=== PATIENT | male | born 1960 | race Caucasian/White ===

== ENCOUNTER 2018-05-15 09:25 | Observation (INO) ==
[2018-05-15] MEDS ORDERED: ASPIRIN EC 325 MG TABLET PO STA (10:11)
[2018-05-15 10:41] LABS: Partial Thromboplastin Time 26.2 SECS (0-40)
[2018-05-15 10:52] LABS: Basophils # 0.1 10*3/uL (0.0-0.2); Basophils % 0.8 % (0.0-0.8); Eosinophils # 0.1 10*3/uL (0.0-0.87); Eosinophils % 1.6 % (0.00-10.9); Hematocrit 48.8 VOL% (42.0-52.0); Immature Granulocytes % 1.4 %; Immature Granulocytes Absolute 0.11 #; Lymphocytes # 1.6 10*3/uL (1.4-4.0); Lymphocytes % 20.2 % (21.2-54.2); Mean Corpuscular HGB Conc 29.1 GM/DL (32-36); Mean Corpuscular Hemoglobin 22 PG (27-34); Mean Corpuscular Volume 74.2 FL (87-102); Monocytes # 1.2 10*3/uL (0.11-0.8); Monocytes % 14.5 % (1.7-12.7); NRBC # 0.02 10*3/uL; Neutrophils # 4.9 10*3/uL (1.4-7.4); Neutrophils % 61.5 % (38.7-73.9); Platelet Count 181 T/CUMM (130-400); Red Blood Count 6.58 MC/CUMM (3.8-5.5); Red Cell Distribution Width 23.3 % (9.3-17.3)
[2018-05-15 10:54] LABS: Hemoglobin 14.2 GM/DL (14.0-18.0)
[2018-05-15 10:57] LABS: Albumin 3.5 G/DL (3.4-5.0); Bilirubin,Total 0.5 MG/DL (0.2-1.0); Calcium 8.6 MG/DL (8.5-10.1); Osmolality,Calculated 279.1 MOS/KG (273-304); Potassium 4.1 MMOL/L (3.5-5.1)
[2018-05-15 10:58] LABS: Hypochromasia 1+; Platelet Estimate Adequate
[2018-05-15] MEDS ORDERED: FUROSEMIDE 40 MG/4 ML VIAL IV STA (11:26)
[2018-05-15] MEDS ORDERED: DEXTROSE 50% 25 GM/50 ML SYRINGE IV PRN (11:53)
[2018-05-15] MEDS ORDERED: ZALEPLON 5 MG CAPSULE PO PRN (11:53)
[2018-05-15] MEDS ORDERED: MAGNESIUM HYDROXIDE SUSP 30 ML UDCUP PO PRN (11:53)
[2018-05-15] MEDS ORDERED: ACETAMINOPHEN 325 MG TABLET PO PRN (11:53)
[2018-05-15] MEDS ORDERED: MORPHINE 4 MG/1 ML VIAL IV PRN (11:53)
[2018-05-15] MEDS ORDERED: ONDANSETRON 4 MG/2 ML VIAL IV PRN (11:53)
[2018-05-15] MEDS ORDERED: oxyCODONE/ACETAMINOPHEN 5-325 MG TABLET PO PRN (11:53)
[2018-05-15] MEDS ORDERED: NITROGLYCERIN SL 0.4 MG TABLET SL PRN (11:53)
[2018-05-15] MEDS ORDERED: GLUCAGON 1 MG VIAL IM PRN (11:53)
[2018-05-15] MEDS ORDERED: ALUM/MAG/SIMETH/LIDO VISC 1:1 30 ML BOTTLE PO PRN (11:53)
[2018-05-15] MEDS ORDERED: POTASSIUM CHLORIDE 20 MEQ TABLET PO PRN ×2 (11:53)
[2018-05-15] MEDS ORDERED: ALBUTEROL 2.5 MG/3 ML NEB RESP TX PRN (12:04)
[2018-05-15 12:48] LABS: Risk Ratio 5.82
[2018-05-15] MEDS: INSULIN REGULAR 100 UNIT/ML SUBCUT SCH ×2 (16:08→21:19)
[2018-05-15] MEDS: ENOXAPARIN 40 MG/0.4 ML SYRINGE SUBCUT SCH (16:43)
[2018-05-15] MEDS ORDERED: ATORVASTATIN 20 MG TABLET PO SCH (21:00)
[2018-05-15] MEDS: FLUTICASONE/SALMETEROL 500-50 DISKUS 14 DOSE INH SCH (21:18)
[2018-05-15] MEDS: FLUTICASONE 50 MCG NASAL SPRAY 16 GM BOTTLE BOTH NARES SCH (21:18)
[2018-05-15] MEDS: MONTELUKAST 10 MG TABLET PO SCH (21:20)
[2018-05-15] MEDS: levETIRAcetam 250 MG TABLET PO SCH ×2 (21:20→21:26)
[2018-05-15] MEDS: FAMOTIDINE 20 MG TABLET PO SCH ×2 (21:21→21:31)
[2018-05-16 05:05] LABS: Albumin 3.3 G/DL (3.4-5.0); Bilirubin,Total 0.8 MG/DL (0.2-1.0); Calcium 8.5 MG/DL (8.5-10.1); Potassium 4.3 MMOL/L (3.5-5.1); Total Protein 6.8 G/DL (6.4-8.3)
[2018-05-16 05:08] LABS: Basophils # 0.1 10*3/uL (0.0-0.2); Basophils % 0.8 % (0.0-0.8); Eosinophils # 0.1 10*3/uL (0.0-0.87); Eosinophils % 1.2 % (0.00-10.9); Hematocrit 48.2 VOL% (42.0-52.0); Hemoglobin 14.2 GM/DL (14.0-18.0); Immature Granulocytes % 1.1 %; Immature Granulocytes Absolute 0.11 #; Lymphocytes # 1.9 10*3/uL (1.4-4.0); Lymphocytes % 19.4 % (21.2-54.2); Mean Corpuscular HGB Conc 29.5 GM/DL (32-36); Mean Corpuscular Hemoglobin 22 PG (27-34); Mean Corpuscular Volume 74.2 FL (87-102); Monocytes # 1.1 10*3/uL (0.11-0.8); Neutrophils # 6.4 10*3/uL (1.4-7.4); Neutrophils % 66.5 % (38.7-73.9); Platelet Count 190 T/CUMM (130-400); Red Cell Distribution Width 23.9 % (9.3-17.3); White Blood Count 9.7 T/CUMM (4-12)
[2018-05-16 05:11] LABS: Hypochromasia Slight; Ovalocytes 2+; Platelet Estimate Normal
[2018-05-16] MEDS: THYROID 60 MG TABLET PO SCH (08:48)
[2018-05-16] MEDS: sitaGLIPtin 100 MG TABLET PO SCH (08:48)
[2018-05-16] MEDS: LOSARTAN 50 MG TABLET PO SCH (08:49)
[2018-05-16] MEDS: ASPIRIN EC 81 MG TABLET PO SCH (08:49)
[2018-05-16] MEDS: FLUTICASONE/SALMETEROL 500-50 DISKUS 14 DOSE INH SCH ×3 (08:49→21:39)
[2018-05-16] MEDS: FAMOTIDINE 20 MG TABLET PO SCH ×2 (08:49→21:39)
[2018-05-16] MEDS: CLOPIDOGREL 75 MG TABLET PO SCH (08:49)
[2018-05-16] MEDS: FLUTICASONE 50 MCG NASAL SPRAY 16 GM BOTTLE BOTH NARES SCH ×2 (08:49→21:39)
[2018-05-16] MEDS: AMIODARONE 200 MG TABLET PO SCH (08:49)
[2018-05-16] MEDS: levETIRAcetam 250 MG TABLET PO SCH ×2 (08:49→21:39)
[2018-05-16] MEDS: INSULIN REGULAR 100 UNIT/ML SUBCUT SCH ×4 (09:22→21:39)
[2018-05-16] MEDS: NON-FORMULARY MEDICATION (Empagliflozin [Jardiance] 10 MG) PO SCH (09:23)
[2018-05-16] MEDS ORDERED: POTASSIUM CHLORIDE RIDER 10 MEQ in PREMIX 1 EACH IV PRN (09:58)
[2018-05-16] MEDS ORDERED: diphenhydrAMINE CAP 25 MG CAPSULE PO ONE (09:58)
[2018-05-16] MEDS ORDERED: DIAZEPAM 5 MG TABLET PO ONE (09:58)
[2018-05-16] MEDS ORDERED: MAGNESIUM SULF RIDER 2 GM in PREMIX 1 EACH IV PRN (09:58)
[2018-05-16 10:51] LABS: PT Patient Result 10.4 SECS
[2018-05-16] MEDS: ENOXAPARIN 40 MG/0.4 ML SYRINGE SUBCUT SCH (13:05)
[2018-05-16] MEDS ORDERED: LIDOCAINE 1% 20 ML VIAL ONE (13:32)
[2018-05-16] MEDS ORDERED: ENOXAPARIN 30 MG/0.3 ML SYRINGE ONE (14:23)
[2018-05-16] MEDS ORDERED: ENOXAPARIN 60 MG/0.6 ML SYRINGE ONE (14:23)
[2018-05-16] MEDS ORDERED: TIROFIBAN 5,000 MCG/100 ML PREMIX IV ONE (14:34)
[2018-05-16] MEDS: TIROFIBAN 5,000 MCG/100 ML PREMIX IV SCH ×2 (14:42→18:53)
[2018-05-16] MEDS ORDERED: TICAGRELOR 90 MG TABLET ONE (14:54)
[2018-05-16] MEDS: ROSUVASTATIN 20 MG TABLET PO SCH (17:35)
[2018-05-16] MEDS: SODIUM CHLORIDE 0.45% 1,000 ML IV SCH (18:53)
[2018-05-16] MEDS: MONTELUKAST 10 MG TABLET PO SCH (21:38)
[2018-05-17] MEDS: SODIUM CHLORIDE 0.45% 1,000 ML IV SCH (00:10)
[2018-05-17] MEDS: TIROFIBAN 5,000 MCG/100 ML PREMIX IV SCH (02:25)
[2018-05-17 07:58] LABS: Calcium 8.6 MG/DL (8.5-10.1); Osmolality,Calculated 280.8 MOS/KG (273-304); Potassium 4.3 MMOL/L (3.5-5.1)
[2018-05-17 08:05] LABS: Basophils # 0.1 10*3/uL (0.0-0.2); Basophils % 0.8 % (0.0-0.8); Eosinophils # 0.1 10*3/uL (0.0-0.87); Eosinophils % 1.1 % (0.00-10.9); Hematocrit 51.7 VOL% (42.0-52.0); Immature Granulocytes % 1.8 %; Immature Granulocytes Absolute 0.18 #; Lymphocytes # 1.6 10*3/uL (1.4-4.0); Lymphocytes % 15.3 % (21.2-54.2); Mean Corpuscular HGB Conc 29.2 GM/DL (32-36); Mean Corpuscular Hemoglobin 22 PG (27-34); Mean Corpuscular Volume 74.6 FL (87-102); Monocytes # 1.2 10*3/uL (0.11-0.8); Monocytes % 11.7 % (1.7-12.7); NRBC # 0.02 10*3/uL; Neutrophils # 7.1 10*3/uL (1.4-7.4); Neutrophils % 69.3 % (38.7-73.9); Platelet Count 172 T/CUMM (130-400); Red Blood Count 6.93 MC/CUMM (3.8-5.5); Red Cell Distribution Width 24.2 % (9.3-17.3); White Blood Count 10.2 T/CUMM (4-12)
[2018-05-17 08:08] LABS: Hemoglobin 15.1 GM/DL (14.0-18.0)
[2018-05-17 08:21] LABS: Hypochromasia 1+; Ovalocytes Slight; Platelet Estimate Adequate
[2018-05-17] MEDS: INSULIN REGULAR 100 UNIT/ML SUBCUT SCH (10:58)
[2018-05-17] MEDS: CLOPIDOGREL 75 MG TABLET PO SCH (10:59)
[2018-05-17] MEDS ORDERED: TICAGRELOR 90 MG TABLET PO SCH (11:00)
[2018-05-17] MEDS: FLUTICASONE/SALMETEROL 500-50 DISKUS 14 DOSE INH SCH (11:11)
[2018-05-17] MEDS: THYROID 60 MG TABLET PO SCH (11:11)
[2018-05-17] MEDS: ROSUVASTATIN 20 MG TABLET PO SCH (11:14)
[2018-05-17] MEDS: ASPIRIN EC 81 MG TABLET PO SCH (11:14)
[2018-05-17] MEDS: AMIODARONE 200 MG TABLET PO SCH (11:14)
[2018-05-17] MEDS: sitaGLIPtin 100 MG TABLET PO SCH (11:15)
[2018-05-17] MEDS: FLUTICASONE 50 MCG NASAL SPRAY 16 GM BOTTLE BOTH NARES SCH (11:15)
[2018-05-17] MEDS: levETIRAcetam 250 MG TABLET PO SCH (11:17)
[2018-05-17] MEDS: LOSARTAN 50 MG TABLET PO SCH (11:17)
[2018-05-17] MEDS: FAMOTIDINE 20 MG TABLET PO SCH (11:17)
[2018-05-17] MEDS ORDERED: CARVEDILOL 3.125 MG TABLET PO SCH (12:00)
[2018-05-17 12:29] VITALS: BP 120/72
[2018-05-17] MEDS: NON-FORMULARY MEDICATION (Empagliflozin [Jardiance] 10 MG) PO SCH (12:37)
[2018-05-17 13:03] LABS: Troponin I 0.228 NG/ML (0.00-0.045)
== END 2018-05-17 13:35 | disposition home or self-care (01) ==
LOC: N.EDINP 09:25 → N.ED 09:25 → SUATTDRO 11:53 → N.4E 15:38 → N.TELEN 05-16 16:18
PROVIDERS: ADMIT Hospitalist; ATTEND Hospitalist

== ENCOUNTER 2018-05-30 13:07 | Observation (INO) ==
[2018-05-30 13:45] LABS: PT Patient Result 10.6 SECS
[2018-05-30] MEDS ORDERED: ONDANSETRON 4 MG/2 ML VIAL IV STA (13:53)
[2018-05-30] MEDS ORDERED: ASPIRIN 325 MG TABLET PO STA (13:53)
[2018-05-30] MEDS ORDERED: ENOXAPARIN 100 MG/ML SYRINGE SUBCUT STA (13:53)
[2018-05-30] MEDS ORDERED: NITROGLYCERIN 2% OINT 1 INCH/GM PACK TOP STA (13:53)
[2018-05-30] MEDS ORDERED: MORPHINE 4 MG/1 ML VIAL IV STA (13:53)
[2018-05-30 13:57] LABS: Alanine Aminotransferase 38 U/L (16-61); Albumin 3.5 G/DL (3.4-5.0); Alkaline Phosphatase 62 U/L (45-117); Aspartate Amino Transferase 16 U/L (0-37); Blood Urea Nitrogen 22 MG/DL (7-18); Calcium 8.2 MG/DL (8.5-10.1); Glucose 111 MG/DL (74-106); Osmolality,Calculated 276.8 MOS/KG (273-304); Potassium 3.9 MMOL/L (3.5-5.1); Sodium 137 MMOL/L (136-145); Total Protein 7.5 G/DL (6.4-8.3); Troponin I < 0.015 NG/ML (0.00-0.045)
[2018-05-30 14:01] LABS: Basophils # 0.1 10*3/uL (0.0-0.2); Basophils % 0.8 % (0.0-0.8); Eosinophils # 0.1 10*3/uL (0.0-0.87); Hematocrit 51.9 VOL% (42.0-52.0); Hemoglobin 15.4 GM/DL (14.0-18.0); Immature Granulocytes % 1.7 %; Immature Granulocytes Absolute 0.17 #; Lymphocytes # 1.6 10*3/uL (1.4-4.0); Lymphocytes % 16.5 % (21.2-54.2); Mean Corpuscular HGB Conc 29.7 GM/DL (32-36); Mean Corpuscular Hemoglobin 22 PG (27-34); Mean Corpuscular Volume 74.8 FL (87-102); Monocytes % 10.2 % (1.7-12.7); Neutrophils # 6.9 10*3/uL (1.4-7.4); Neutrophils % 69.8 % (38.7-73.9); Platelet Count 198 T/CUMM (130-400); Red Blood Count 6.94 MC/CUMM (3.8-5.5); Red Cell Distribution Width 24.6 % (9.3-17.3); White Blood Count 9.9 T/CUMM (4-12)
[2018-05-30] MEDS ORDERED: ENOXAPARIN 120 MG/0.8 ML SYRINGE SUBCUT ONE (14:20)
[2018-05-30 14:39] LABS: Hypochromasia 1+; Lymphocytes 17 % (20-55); Platelet Estimate Adequate; Segmented Neutrophils 75 % (50-85); Total Cells Counted 100
[2018-05-30 14:40] LABS: Ovalocytes 1+
[2018-05-30 15:28] LABS: Apearance,Urine CLEAR (Clear); Bilirubin,Urine Negative (Negative); Blood, Urine Negative (Negative); Glucose,Urine (UA) >=500 mg/dL (Negative); Ketones,Urine Negative (Negative); Nitrite,Urine Negative (Negative); Protein,Urine Negative; RBC,Urine 1 /HPF (0-4); Urine Color Straw (Yellow); Urine Specific Gravity 1.009 (1.001-1.035); Urine Urobilinogen < 2.0 EU/DL (0.2-1.0); WBC,Urine <1 /HPF (0-6)
[2018-05-30 15:43] LABS: Barbiturates Screen,Urine Negative (Negative); Benzodiazepines Screen,Urine Negative (Negative); Cannabinoid Screen,Urine Negative (Negative); Opiate Screen,Urine Negative (Negative); Phencyclidine Screen,Urine Negative (Negative)
[2018-05-30] MEDS ORDERED: ONDANSETRON 4 MG/2 ML VIAL IV PRN (16:23)
[2018-05-30] MEDS ORDERED: ACETAMINOPHEN 325 MG TABLET PO PRN (16:23)
[2018-05-30] MEDS ORDERED: ALBUTEROL 2.5 MG/3 ML NEB RESP TX PRN (16:28)
[2018-05-30] MEDS ORDERED: Tadalafil [Cialis] 20 MG PO PRN (16:28)
[2018-05-30] MEDS ORDERED: NITROGLYCERIN SL 0.4 MG TABLET SL PRN (17:12)
[2018-05-30] MEDS ORDERED: ATORVASTATIN 20 MG TABLET PO SCH (21:00)
[2018-05-30] MEDS ORDERED: levETIRAcetam 500 MG TABLET ONE (21:04)
[2018-05-30] MEDS ORDERED: ATORVASTATIN 40 MG TABLET ONE (21:04)
[2018-05-30] MEDS: levETIRAcetam 250 MG TABLET PO SCH (21:11)
[2018-05-30] MEDS: TICAGRELOR 90 MG TABLET PO SCH (21:11)
[2018-05-30] MEDS: FAMOTIDINE 20 MG TABLET PO SCH (21:11)
[2018-05-30] MEDS: FLUTICASONE/SALMETEROL 500-50 DISKUS 14 DOSE INH SCH (22:16)
[2018-05-30] MEDS: FLUTICASONE 50 MCG NASAL SPRAY 16 GM BOTTLE BOTH NARES SCH (22:16)
[2018-05-31 03:56] LABS: Calcium 8.1 MG/DL (8.5-10.1); Osmolality,Calculated 280.7 MOS/KG (273-304); Potassium 3.9 MMOL/L (3.5-5.1)
[2018-05-31 04:05] LABS: Basophils # 0.1 10*3/uL (0.0-0.2); Basophils % 0.6 % (0.0-0.8); Eosinophils # 0.2 10*3/uL (0.0-0.87); Eosinophils % 1.5 % (0.00-10.9); Hemoglobin 14.9 GM/DL (14.0-18.0); Immature Granulocytes % 1.5 %; Immature Granulocytes Absolute 0.15 #; Lymphocytes # 1.8 10*3/uL (1.4-4.0); Lymphocytes % 17.6 % (21.2-54.2); Mean Corpuscular HGB Conc 29.2 GM/DL (32-36); Mean Corpuscular Hemoglobin 22 PG (27-34); Mean Corpuscular Volume 75.9 FL (87-102); Monocytes # 1.1 10*3/uL (0.11-0.8); Monocytes % 10.6 % (1.7-12.7); Neutrophils # 6.9 10*3/uL (1.4-7.4); Neutrophils % 68.2 % (38.7-73.9); Platelet Count 172 T/CUMM (130-400); Red Blood Count 6.72 MC/CUMM (3.8-5.5); Red Cell Distribution Width 24.2 % (9.3-17.3); White Blood Count 10.1 T/CUMM (4-12)
[2018-05-31] MEDS ORDERED: METOPROLOL SUCCINATE XL 25 MG TABLET PO SCH (09:00)
[2018-05-31] MEDS ORDERED: AMIODARONE 200 MG TABLET PO SCH (09:00)
[2018-05-31] MEDS ORDERED: TELMISARTAN 40 MG TABLET PO SCH (09:00)
[2018-05-31] MEDS ORDERED: FUROSEMIDE 40 MG/4 ML VIAL IV SCH (09:00)
[2018-05-31] MEDS ORDERED: THYROID 60 MG TABLET PO SCH (09:00)
[2018-05-31] MEDS ORDERED: ENOXAPARIN 30 MG/0.3 ML SYRINGE SUBCUT SCH (09:00)
[2018-05-31] MEDS ORDERED: CLOPIDOGREL 75 MG TABLET PO SCH (09:00)
[2018-05-31] MEDS ORDERED: ASPIRIN EC 81 MG TABLET PO SCH (09:00)
[2018-05-31 12:04] VITALS: BP 144/66
[2018-05-31] MEDS ORDERED: CLOPIDOGREL 300 MG TABLET PO ONE (12:59)
[2018-05-31] MEDS: FLUTICASONE/SALMETEROL 500-50 DISKUS 14 DOSE INH SCH (13:01)
[2018-05-31] MEDS: FLUTICASONE 50 MCG NASAL SPRAY 16 GM BOTTLE BOTH NARES SCH (13:01)
[2018-05-31] MEDS: TICAGRELOR 90 MG TABLET PO SCH (13:02)
[2018-05-31] MEDS: levETIRAcetam 250 MG TABLET PO SCH (13:43)
[2018-05-31] MEDS: FAMOTIDINE 20 MG TABLET PO SCH (13:44)
[2018-06-01] MEDS ORDERED: CLOPIDOGREL 75 MG TABLET PO SCH (09:00)
== END 2018-05-31 16:14 | disposition home or self-care (01) ==
LOC: N.ED 13:07 → N.EDINP 13:07 → N.TELES 05-31 07:15
PROVIDERS: ADMIT Hospitalist; ATTEND Hospitalist